=== PATIENT | male | born 1990 | race Two or more races ===

== ENCOUNTER 2024-05-30 16:52 | Emergency (ER) | payer OTHER ==
[~2024-05-30] VITALS: Ht 190.5 cm; Wt 131.0 kg
[2024-05-30 17:50] LABS: Basophils # (auto) 0 10 ^3/uL (0-0.2); Basophils % (auto) 0.5 % (0.0-2.0); Eosinophils # (auto) 0.1 10 ^3/uL (0-0.8); Eosinophils % (auto) 0.7 % (0.0-7.0); Hematocrit 45.7 % (41.0-53.0); Hemoglobin 15.5 g/dL (13.5-17.5); Lymphocytes # (auto) 2.2 10 ^3/uL (0.4-5.4); Lymphocytes % (auto) 20.5 % (10.0-50.0); Mean Corpuscular Hemoglobin 29.6 pg (28.0-32.0); Monocytes # (auto) 0.5 10 ^3/uL (0-1.3); Monocytes % (auto) 4.6 % (0.0-12.0); Neutrophils # (auto) 7.8 10 ^3/uL (1.6-8.6); Neutrophils % (auto) 73.7 % (37.0-80.0); Nucleated Red Blood Cells % 0.1 %; Platelet Count (auto) 283 10^3/uL (140-450); Red Blood Cells 5.25 10^6/uL (4.5-5.90); Red Cell Distribution Width 13.6 % (11.8-14.3); White Blood Cell 10.5 10^3/uL (4.4-10.8)
--- NOTE | 2024-05-30 17:53 | ED.PDOC ---
GI ASSESSMENT HPI Comments 33-year-old male with no pertinent past medical history, presents to ED for upper abdominal pain that has been intermittent for the past three months, however worsening today. Patient states that he has pain after he eats and also develops nausea and vomiting. Patient reports that he ate pizza today, causing him to have pain and vomit. He denies any radiation of the pain to his back. Patient denies any fever, chills, chest pain, shortness of breath, lower abdominal pain, diarrhea, melena, hematemesis. Patient reports taking ibuprofen without relief of symptoms. Pain is currently rated as 5/10 in severity. Chief Complaint: Abdominal Pain Time Seen by MD: 16:59 Reviewed Notes: Nurses Notes, Medications, Allergies Allergies: Coded Allergies: NO KNOWN ALLERGIES (Unverified , 05/30/24) Mode of Arrival: Ambulatory Past Medical History PAST MEDICAL HISTORY: Denies Surgical History: Denies all surgeries Family History Family History: Reviewed,noncontributory to illness, No family hx of Cancer, No family hx of DM, No family hx of Heart leighann, No family hx of HTN, No family hx ofKidney leighann, No family hx of Liver leighann, No family hx of Lung leighann, No family hx of Stroke Social History Smoker: Non-Smoker Alcohol: Occasionally Drugs: Denies Drug Use Constitutional: denies: chills, diaphoresis, fatigue, fever, malaise, sweats, weakness, others EENTM: denies: blurred vision, double vision, ear bleeding, ear discharge, ear drainage, ear pain, ear ringing, eye pain, eye redness, hearing loss, mouth pain, mouth swelling, nasal discharge, nose bleeding, nose congestion, nose pain, photophobia, tearing, throat pain, throat swelling, voice changes, others Respiratory: denies: cough, hemoptysis, orthopnea, SOB at rest, shortness of breath, SOB with excertion, stridor, wheezing, others Cardiovascular: denies: chest pain, dizzy spells, diaphoresis, Dyspnea on ex ertion, edema, irregular heart beat, left arm pain, lightheadedness, palpitations, PND, syncope, others Gastrointestinal: reports: abdominal pain, nausea, vomiting; denies: abdomen distended, blood streaked bowels, constipated, diarrhea, dysphagia, difficulty swallowing, hematemesis, melena, poor appetite, poor fluid intake, rectal bleeding, rectal pain, others Genitourinary: denies: burning, dysuria, flank pain, frequency, hematuria, incontinence, penile discharge, penile sore, pain, testicle pain, testicle swelling, urgency, others Neurological: denies: dizziness, fainting, headache, left sided numbness, left sided weakness, numbness, paresthesia, pre-existing deficit, right sided numbness, right sided weakness, seizure, speech problems, tingling, tremors, weakness, others Musculoskeletal: denies: back pain, gout, joint pain, joint swelling, muscle pain, muscle stiffness, neck pain, others Integumetry: denies: bruises, change in color, change in hair/nails, dryness, laceration, lesions, lumps, rash, wounds, others Allergic/Immunocompromised: denies: Difficulty Healing, Frequent Infections, Hives, Itching, others Hematologic/Lymphatic: denies: anemia, blood clots, easy bleeding, easy bruising, swollen glands, others Endocrine: denies: excessive hunger, excessive sweating, excessive thirst, excessive urination, flushing, intolerance to cold, intolerance to heat, unexplained weight gain, unexplained weight loss, others Psychiatric: denies: anxiety, bipolar disorder, depression, hopeless, panic disorder, schizophrenia, sleepless, suicidal, others All Other Systems: Reviewed and Negative Physical Exam General Appearance: No Apparent Distress, Normal HEENT: Normal ENT Inspection, Pharynx Normal, TMs Normal Neck: Full Range of Motion, Non-Tender, Normal, Normal Inspection Respiratory: Chest Non-Tender, Lungs Clear, No Accessory Muscle Use, No Respiratory Distress, Normal Breath Sounds Cardiovascular: No Edema, No JVD, No Murmur, No Gallop, Normal Peripheral Pulses, Regular Rate/Rhythm Breast Exam: Deferred Gastrointestinal: No Organomegaly, No Pulsatile Mass, Normal Bowel Sounds, Soft, Tenderness (Mild tenderness to palpation to the epigastric region.) Genitalia: Deferred Pelvic: Deferred Rectal: Deferred Extremities: No calf tenderness, Normal capillary refill, Normal inspection, Normal range of motion, Non-tender, No pedal edema Musculoskeletal : Apperance: Normal Neurologic: Alert, store custodian II-XII nml as Tested, No Motor Deficits, Normal Affect, Normal Mood, No Sensory Deficits Cerebellar Function: Normal Reflexes: Normal Skin: Dry, Normal Color, Warm Lymphatic: No Adenopathy Was a procedure done? Was a procedure done?: No GI differential Dx Differential Diagnosis: Appendicitis, Gastritis/PUD, Gastroenteritis, GI hemorrhage, Pancreatitis, Electrolyte Imbalance, Esophageal Varicies, Kidney Stone X-Ray, Labs, Meds, VS Vital Signs Date Time Temp Pulse Resp B/P (MAP) Pulse Ox O2 Delivery O2 Flow Rate FiO2 05/30/24 17:55 70 17 98 Room Air 05/30/24 17:55 98.0 70 17 132/76 (94) 98 98.0 05/30/24 16:58 98.6 78 18 136/74 (94) 99 98.6 Lab Test 05/30/24 17:32 05/30/24 17:31 Range/Units White Blood Count 10.5 4.4-10.8 10^3/uL Red Blood Count 5.25 4.5-5.90 10^6/uL Hemoglobin 15.5 13.5-17.5 g/dL Hematocrit 45.7 41.0-53.0 % Mean Corpuscular Volume 87.0 80.0-100.0 fL Mean Corpuscular Hemoglobin 29.6 28.0-32.0 pg Mean Corpuscular Hemoglobin Concent 34.0 32.0-36.0 g/dL Red Cell Distribution Width 13.6 11.8-14.3 % Platelet Count 283 140-450 10^3/uL Mean Platelet Volume 8.2 6.9-10.8 fL Neutrophils (%) (Auto) 73.7 37.0-80.0 % Lymphocytes (%) (Auto) 20.5 10.0-50.0 % Monocytes (%) (Auto) 4.6 0.0-12.0 % Eosinophils (%) (Auto) 0.7 0.0-7.0 % Basophils (%) (Auto) 0.5 0.0-2.0 % Neutrophils # (Auto) 7.8 1.6-8.6 10 ^3/uL Lymphocytes # (Auto) 2.2 0.4-5.4 10 ^3/uL Monocytes # (Auto) 0.5 0-1.3 10 ^3/uL Eosinophils # (Auto) 0.1 0-0.8 10 ^3/uL Basophils # (Auto) 0 0-0.2 10 ^3/uL Nucleated Red Blood Cells 0.1 % Sodium Level 142 136-145 mmol/L Potassium Level 3.9 3.5-5.1 mmol/L Chloride Level 109 H 98-107 mmol/L Carbon Dioxide Level 26 20-31 mmol/L Anion Gap 7 5-15 Blood Urea Nitrogen 13 9-23 mg/dL Creatinine 1.35 H 0.700-1.30 mg/dL Glomerular Filtration Rate Calc 72 >90 mL/min BUN/Creatinine Ratio 9.6 L 10.0-20.0 Serum Glucose 100 74-106 mg/dL Lactic Acid Level 1.0 0.4-2.0 mmol/L Calcium Level 10.2 8.7-10.4 mg/dL Total Bilirubin 0.9 0.2-1.0 mg/dL Aspartate Amino Transferase (AST) 71 H 13-40 U/L Alanine Aminotransferase (ALT) 62 H 7-40 U/L Alkaline Phosphatase 81 46-116 U/L Total Protein 7.4 5.7-8.2 g/dL Albumin 4.9 H 3.2-4.8 g/dL Lipase 43 12-53 U/L Current Medications Medications (Trade) Dose Ordered Sig/Lico Route Start Time Stop Time Status Last Admin Pantoprazole Sodium (Protonix Tablet) 40 mg ONCE ONCE PO 05/30/24 17:45 05/30/24 17:46 DC 05/30/24 17:54 Ondansetron HCl (Zofran Po) 4 mg ONCE ONCE PO 05/30/24 17:45 05/30/24 17:46 DC 05/30/24 17:54 X-Ray, Labs, Meds, VS Comment CT Abd/Pelv IMPRESSION: 1. No definite acute abdominal or pelvic findings. Hazy mesentery with subcentimeter mesenteric lymph nodes is nonspecific. Clinical correlation and continued follow-up is recommended. Gallbladder US Impression: Mild hepatomegaly with hepatic steatosis. Gallstones and sludge within the gallbladder with no evidence of acute cholecystitis. MDM: Patient with history as above presented with abdominal pain. History obtained from patient. Patient was nontoxic, stable, afebrile, ambulatory, no acute distress. Exam as above. Labs reviewed. CBC did not show leukocytosis. No anemia. CMP did not show significant electrolyte abnormalities. Creatinine mildly elevated at 1.35. Normal BUN. Lactic acid within normal limits. AST elevated at 71. ALT elevated at 62. Lipase within normal limits. Independently reviewed imaging. CT abdomen/pelvis did not show acute abdominal findings.. Reviewed external records. All findings were discussed with the patient. Differential diagnosis considered. Overall presentation is consistent with gastritis. Low suspicion for acute appendicitis, cholecystitis, bowel obstruction, diverticulitis, pancreatitis. Patient was treated with Protonix and Zofran with improvement in symptoms. Patient was reevaluated and vital signs were reviewed. Consideration was given for admission, but the patient was stable for outpatient management. Prescribed omeprazole for outpatient treatment. Patient was advised to follow up with PCP for further evaluation. Disposition: Discussed the need to follow up diagnostics, including incidental findings. Discharged the patient with instructions to obtain outpatient follow up in 1-2 days of today's symptoms and findings, with strict return precautions if patient develops new or worsening symptoms. This medical document was created using the [employer] system. Although this document has been carefully reviewed, there may still be some phonetic and typographical errors, which are due to imperfections of the software program, and do not reflect any compromise in the patient's medical care. Time of 1ST Reevaluation: 19:32 Reevaluation 1ST: Improved Patient Education/Counseling: Diagnosis, Treatment, Prognosis, Need For Follow Up Family Education/Counseling: Diagnosis, Treatment, Prognosis, Need For Follow Up Departure 1 Departure Time of Disposition: 19:32 Impression: Primary Impression: Gastritis Qualified Codes: K29.00 - Acute gastritis without bleeding Disposition: HOME / SELF CARE / HOMELESS Condition: Fair e-Prescriptions Omeprazole (Omeprazole) 20 Mg Tab 20 MG PO DAILY, #30 TAB Prov: BIPIN GRESHAM 05/30/24 Critical Care Note Critical Care Time?: No Stability Stability form required: No Heart Score Heart Score: Heart Score Response (Comments) Value History N/A 0 EKG N/A 0 Age N/A 0 Risk Factors N/A 0 Troponin N/A 0 Total 0 BIPIN GRESHAM May 30, 2024 17:53
[2024-05-30] MEDS: ONDANSETRON ODT 4 MG TAB PO ONE (17:54)
[2024-05-30] MEDS: PANTOPRAZOLE 40 MG TAB PO ONE (17:54)
[2024-05-30 17:55] VITALS: BP 132/76; PULSE 70; RESP 17; TEMP 98; O2SAT 98
[2024-05-30 18:07] LABS: Alanine Aminotransferase 62 U/L (7-40); Albumin 4.9 g/dL (3.2-4.8); Alkaline Phosphatase 81 U/L (46-116); Anion Gap 7 (5-15); Aspartate Aminotransferase 71 U/L (13-40); BUN/Creatinine Ratio 9.6 (10.0-20.0); Bilirubin, Total 0.9 mg/dL (0.2-1.0); Blood Urea Nitrogen 13 mg/dL (9-23); Calcium 10.2 mg/dL (8.7-10.4); Carbon Dioxide 26 mmol/L (20-31); Chloride 109 mmol/L (98-107); Glucose 100 mg/dL (74-106); Lipase 43 U/L (12-53); Potassium 3.9 mmol/L (3.5-5.1); Sodium 142 mmol/L (136-145); Total Protein 7.4 g/dL (5.7-8.2)
--- NOTE | 2024-05-30 18:09 | DVH ---
Exam: CT CT AB PEL WO CON-NO ORAL OR IV History: Epigastric pain Comparison Study: None Technique: Multidetector spiral CT of the abdomen and pelvis was performed from lung bases to pubic symphysis. Imaging was performed without IV contrast. Axial, coronal and sagittal multiplanar reform ats were obtained from the axial data set by the technologist. Radiation dose : Abdomen/Pelvis: CTDIvol 26 mGy, DLP 1707 mGy*cm. Findings: Evaluation of solid organs is limited due to lack of intravenous contrast use. Lung Bases: No acute or significant lung base finding. Normal heart size. No pleural or pericardial effusion. Liver: The liver is normal in size. No focal lesions. Gallbladder and biliary Tree: Unremarkable Spleen: Unremarkable Pancreas: The pancreas is grossly normal in appearance. Adrenal Glands: Unremarkable Kidneys: Kidneys are grossly normal without calculi or hydronephrosis. Bladder: Grossly unremarkable for degree of distention. Bowel: The stomach is grossly normal in appearance. Small bowel and colon are normal in caliber and d istribution. The appendix is not visualized; however, no secondary findings of acute appendicitis yohana ntified. Ascites: Absent Lymphadenopathy: Subcentimeter mesenteric lymph nodes. Abdominal wall and Mesentery: Hazy mesentery. Vasculature: The visualized abdominal aorta is normal in size and caliber. Evaluation of abdominal a nd pelvic vessels is limited due to lack of intravenous contrast. Pelvic Organs: Unremarkable Musculoskeletal: No aggressive focal bony lesions, acute fractures or dislocation. IMPRESSION: 1. No definite acute abdominal or pelvic findings. Hazy mesentery with subcentimeter mesenteric lymph nodes is nonspecific. Clinical correlation and continued follow-up is recommended. Radiation optimization: All CT scans at this facility use at least one of these dose optimization kalpesh hniques: Automated exposure control mA and/or kV adjustment per patient size (includes targeted exams where dose is matched to clinical indication) or iterative reconstruction. HS:Y
--- NOTE | 2024-05-30 19:18 | DVH ---
Procedure: US GALLBLADDER Study Date and Requested Time: 05/30/2024 06:38 PM History: R/o cholecystitis Comparison: CT abdomen and pelvis 05/30/2024 Technique: Multiple high resolution mann-scale images obtained of the right upper quadrant of the abd omen with color Doppler for evaluation of blood flow and vascularity as indicated. Findings: Liver normal in size, measuring 18 cm in length, with slightly increased echogenicity and normal cont ours. No evidence of focal hepatic lesions, intrahepatic or extrahepatic ductal dilatation. Common bi le duct measures 0.5 cm in diameter. Gallstones and sludge within the gallbladder with no evidence of gallbladder wall thickening or peric holecystic free fluid. Negative sonographic Ramesh's sign. Pancreas is obscured by bowel gas. Right kidney measures 9.2 cm in length, with normal contours, echotexture, and cortical thickness. No evidence of hydronephrosis, calculi, cystic or solid renal lesions. Partially visualized inferior vena cava unremarkable. Impression: Mild hepatomegaly with hepatic steatosis. Gallstones and sludge within the gallbladder with no evidence of acute cholecystitis.
[2024-05-30] MEDS ORDERED: OMEP-335 PO (19:33)
== END 2024-05-30 19:44 | disposition home or self-care (01) ==
LOC: ER 16:54 → EEVIPCON 16:54 → ER 19:44
DX: K29.70 Gastritis, unspecified, without bleeding (principal)
CPT/HCPCS: 36415; 74176; 76705; 80053; 83605; 83690; 85025; 99284; Q0162

== ENCOUNTER 2024-09-14 02:43 | Emergency (ER) | payer OTHER ==
[~2024-09-14] VITALS: Ht 190.5 cm; Wt 300.0 kg
[~2024-09-14 02:43] MED LIST: OMEP-335 PO
[2024-09-14] MEDS ORDERED: KETOROLAC TROMETH 30 MG/ML 1ML VIAL IM ONE (03:00)
[2024-09-14] MEDS ORDERED: SODIUM CHLORIDE 0.9% 1,000 ML IV ONE (03:15)
--- NOTE | 2024-09-14 03:18 | ED.PDOC ---
GI ASSESSMENT HPI Comments 33 year old male presents to the ED with a chief complaint of abdominal pain onset today (09/14/24) around 01:40. Patient states he had dinner at 18:00, went to bed, woke up at 01:40 experiencing 10/10, diffused abdominal pain as well as nausea/vomiting. Patient has been experiencing intermittent abdominal pain for the past week. Was seen in this ED on 05/30/24 for similar symptoms, was diagnosed with Gastritis. PMHx Gastritis. Denies chest pain, diarrhea, constipation, dizziness, headache, fevers, chills, hematemesis, melena. No other symptoms or modifying factors present at this time. Time Seen by MD: 03:05 Reviewed Notes: Medications, Allergies Allergies: Coded Allergies: NO KNOWN ALLERGIES (Unverified , 05/30/24) Home Meds Active Scripts Omeprazole (Omeprazole) 20 Mg Tab, 20 MG PO DAILY, #30 TAB Prov:BIPIN GRESHAM MARY PAC 05/30/24 Information Source: Patient, Spouse Mode of Arrival: Wheelchair Timing: Hours Duration: Since onset Prehospital treatment: None Quality: Sharp Severity: Moderate Recent: None Recent Hx of: None Pain Location: Diffuse Associated sign and symptoms: Nausea, Vomiting, Abdominal Pain Vital Signs Vital Signs Date Time Temp Pulse Resp B/P (MAP) Pulse Ox O2 Delivery O2 Flow Rate FiO2 09/14/24 04:10 107 18 137/72 09/14/24 03:50 97.7 98 97.7 Physical Exam General: Awake, alert and oriented. Patient appears to be in significant discomfort Skin: Skin in warm, dry and intact. Appropriate color for ethnicity. HEENT: The head is normocephalic and atraumatic. Conjunctivae are clear without exudates or hemorrhage. Sclera is non-icteric. EOM are intact. No signs of nystagmus. Eyelids are normal in appearance without swelling or lesions. Oral mucosa is pink and moist Neck: The neck is supple with normal range of motion. No JVD. Cardiac: Heart rate and rhythm are normal. No murmurs, gallops, or rubs are auscultated. Respiratory: No signs of respiratory distress. Lung sounds are clear in all lobes bilaterally without rales, rhonchi, or wheezes. Abdominal: Abdomen is soft, with epigastric tenderness, guarding or rigidity. Extremities: Upper and lower extremities are atraumatic in appearance without deformity or edema. Neurological: The patient is awake, alert and oriented to person, place, and time with normal speech. Speech is clear. There is no facial asymmetry. Psychiatric: Appropriate mood and affect. Good judgement and insight. Review of Systems: As stated in HPI Past Medical History PAST MEDICAL HISTORY: Denies Surgical History: Denies all surgeries Family History Family History: Reviewed,noncontributory to illness, No family hx of Cancer, No family hx of DM, No family hx of Heart leighann, No family hx of HTN, No family hx ofKidney leighann, No family hx of Liver leighann, No family hx of Lung leighann, No family hx of Stroke Social History Smoker: Non-Smoker Alcohol: Occasionally Drugs: Denies Drug Use Lives In: Home Was a procedure done? Was a procedure done?: No GI differential Dx Differential Diagnosis: Other (Differential diagnoses considered include: Abdominal aortic aneurysm, WI, esophageal rupture, intestinal obstruction, mesenteric ischemia, perforated viscus or solid organ rupture, CHF with hepatomegaly, pneumonia, abscess, appendicitis, biliary disease, diverticulitis, gastritis, gastroenteritis, hepatitis, hernia, inflammatory bowel disease, pancreatitis, peptic ulcer disease, urinary tract infection, ureteral colic, constipation, GERD, irritable syndrome, abdominal wall pain, nonspecific abdominal pain, herpes zoster, nephrolithiasis.) X-Ray, Labs, Meds, VS Vital Signs Date Time Temp Pulse Resp B/P (MAP) Pulse Ox O2 Delivery O2 Flow Rate FiO2 09/14/24 04:10 107 18 137/72 09/14/24 03:50 97.7 70 21 137/83 (101) 98 97.7 09/14/24 02:43 98.2 65 18 121/65 (83) 99 98.2 Lab Test 09/14/24 02:58 Range/Units White Blood Count 13.2 H 4.4-10.8 10^3/uL Red Blood Count 5.46 4.5-5.90 10^6/uL Hemoglobin 16.3 13.5-17.5 g/dL Hematocrit 48.1 41.0-53.0 % Mean Corpuscular Volume 88.1 80.0-100.0 fL Mean Corpuscular Hemoglobin 29.9 28.0-32.0 pg Mean Corpuscular Hemoglobin Concent 34.0 32.0-36.0 g/dL Red Cell Distribution Width 13.5 11.8-14.3 % Platelet Count 286 140-450 10^3/uL Mean Platelet Volume 8.6 6.9-10.8 fL Neutrophils (%) (Auto) 59.7 37.0-80.0 % Lymphocytes (%) (Auto) 33.7 10.0-50.0 % Monocytes (%) (Auto) 5.6 0.0-12.0 % Eosinophils (%) (Auto) 0.5 0.0-7.0 % Basophils (%) (Auto) 0.5 0.0-2.0 % Neutrophils # (Auto) 7.9 1.6-8.6 10 ^3/uL Lymphocytes # (Auto) 4.5 0.4-5.4 10 ^3/uL Monocytes # (Auto) 0.7 0-1.3 10 ^3/uL Eosinophils # (Auto) 0.1 0-0.8 10 ^3/uL Basophils # (Auto) 0.1 0-0.2 10 ^3/uL Nucleated Red Blood Cells 0.1 % Sodium Level 143 136-145 mmol/L Potassium Level 3.0 L 3.5-5.1 mmol/L Chloride Level 106 98-107 mmol/L Carbon Dioxide Level 22 20-31 mmol/L Anion Gap 15 5-15 Blood Urea Nitrogen 14 9-23 mg/dL Creatinine 1.26 0.700-1.30 mg/dL Glomerular Filtration Rate Calc 78 >90 mL/min BUN/Creatinine Ratio 11.1 10.0-20.0 Serum Glucose 162 H 74-106 mg/dL Calcium Level 9.4 8.7-10.4 mg/dL Total Bilirubin 4.9 H 0.2-1.0 mg/dL Aspartate Amino Transferase (AST) 279 H 13-40 U/L Alanine Aminotransferase (ALT) 324 H 7-40 U/L Alkaline Phosphatase 108 46-116 U/L Total Protein 7.1 5.7-8.2 g/dL Albumin 4.7 3.2-4.8 g/dL Lipase > 3500 H 12-53 U/L Current Medications Medications (Trade) Dose Ordered Sig/Lico Route Start Time Stop Time Status Last Admin Morphine Sulfate 4 mg ONCE ONCE IV 09/14/24 03:15 09/14/24 03:16 DC 09/14/24 04:10 Ondansetron HCl (Zofran) 4 mg ONCE ONCE IV 09/14/24 03:15 09/14/24 03:16 DC 09/14/24 04:10 Sodium Chloride 1,000 ml @ 1,000 mls/hr Q1H ONCE IV 09/14/24 04:15 09/14/24 04:54 DC 09/14/24 04:09 Time of 1ST Reevaluation: 03:35 Reevaluation 1ST: Unchanged Patient Education/Counseling: Need For Follow Up Family Education/Counseling: Need For Follow Up SEPSIS Sepsis Screen Physician Orders Ct Ab Pel Wo Con-No Oral Or Iv (09/14/24 02:51) Vital Signs Date Time Temp Pulse Resp B/P (MAP) Pulse Ox O2 Delivery O2 Flow Rate FiO2 09/14/24 04:10 107 18 137/72 09/14/24 03:50 97.7 70 21 137/83 (101) 98 97.7 09/14/24 02:43 98.2 65 18 121/65 (83) 99 98.2 Laboratory Tests Test 09/14/24 02:58 White Blood Count 13.2 10^3/uL (4.4-10.8) H Medications Medications Dose Ordered Sig/Lico Route Start Time Stop Time Status Last Admin Dose Admin Morphine Sulfate 4 mg ONCE ONCE IV 09/14/24 03:15 09/14/24 03:16 DC 09/14/24 04:10 Ondansetron HCl 4 mg ONCE ONCE IV 09/14/24 03:15 09/14/24 03:16 DC 09/14/24 04:10 Sodium Chloride 1,000 ml @ 1,000 mls/hr Q1H ONCE IV 09/14/24 04:15 09/14/24 04:54 DC 09/14/24 04:09 Departure 1 Departure Time of Disposition: 04:04 Impression: Primary Impression: Acute pancreatitis Disposition: LEFT AWOL/ELOPED Condition: Stable Comments 33-year-old male with acute pancreatitis, treatment initiated in the emergency department, pending consultation with [facility] physician for admission. Despite our efforts, patient has decided to leave against medical advice. The patient has a normal mental status and full decisional capacity. Patient has been informed of the benefits of staying such as further diagnosis and treatment of possible serious etiology of the symptoms, and the risks of leaving such as , chronic pain, permanent disability or other serious adverse events which might be attributed to leaving. The patient displays clear understanding of these benefits and risks and chooses to leave. The patient is been informed also that they may return here at any time if they change their mind or need to further concerns or questions has been referred to their local medical physician for follow up KRISTINA. Critical Care Note Critical Care Time?: No Stability Stability form required: No I personally scribed for JOSE A SEXTON MD ([email or web address]) on 09/14/24 at 03:18. Electronically submitted by Mildred Ferrari ([email or web address]). JOSE A SEXTON MD Sep 14, 2024 03:18
[2024-09-14 03:24] LABS: Hematocrit 48.1 % (41.0-53.0); Hemoglobin 16.3 g/dL (13.5-17.5); Mean Corpuscular Hemoglobin 29.9 pg (28.0-32.0); Mean Corpuscular Volume 88.1 fL (80.0-100.0); Nucleated Red Blood Cells % 0.1 %
--- NOTE | 2024-09-14 03:32 | DVH ---
Exam: CT CT AB PEL WO CON-NO ORAL OR IV History: Abdominal pain, history of gallstones Comparison Study: CT CT AB PEL WO CON-NO ORAL OR IV on DOS: 05/30/24 Technique: Multidetector spiral CT of the abdomen was performed from lung bases to pubic symphysis. I maging was performed without IV contrast. Axial, coronal and sagittal multiplanar reformats were obta ined from the axial data set by the technologist. Radiation Dose : 1. Abdomen/Pelvis: CTDIvol 25.4 mGy, DLP 1663.92 mGy*cm. Findings: Evaluation of solid organs is limited due to lack of intravenous contrast use. Lung Bases: No acute or significant lung base finding. Normal heart size. No pleural or pericardial effusion. Liver: The liver is enlarged, measuring 20.2 cm in craniocaudal dimension.. No focal lesions. Gallbladder and Biliary Tree: Unremarkable Spleen: Unremarkable Pancreas: Moderate diffuse peripancreatic free fluid. The pancreatic parenchyma is grossly normal in its unopacified parenchymal attenuation. No evidence of organized fluid collection to suggest absces s or pseudocyst. Adrenal Glands: Unremarkable Kidneys: Kidneys are grossly normal without calculi or hydronephrosis. Bladder: Grossly unremarkable for degree of distention. Bowel: Small hiatal hernia. The stomach is grossly normal in appearance. Small bowel and colon are no rmal in caliber and distribution. The appendix is not visualized; however, no secondary findings of a cute appendicitis identified. Ascites: Small volume abdominal ascites. Lymphadenopathy: No mesenteric, retroperitoneal or periportal lymphadenopathy. Abdominal Wall and Mesentery: Unremarkable. Vasculature: The visualized abdominal aorta is normal in size and caliber. Evaluation of abdominal a nd pelvic vessels is limited due to lack of intravenous contrast. Pelvic Organs: Unremarkable Musculoskeletal: No aggressive focal bony lesions, acute fractures or dislocation. IMPRESSION: 1. Moderate diffuse peripancreatic free fluid consistent with sequelae of acute pancreatitis. No defi nite organized fluid collection to suggest abscess or pseudocyst at this time. 2. Small volume abdominal ascites. 3. Hepatomegaly. Radiation optimization: All CT scans at this facility use at least one of these dose optimization kalpesh hniques: automated exposure control mA and/or kV adjustment per patient size (includes targeted exam s where dose is matched to clinical indication) or iterative reconstruction.
[2024-09-14 03:43] LABS: Albumin 4.7 g/dL (3.2-4.8); Alkaline Phosphatase 108 U/L (46-116); Anion Gap 15 (5-15); BUN/Creatinine Ratio 11.1 (10.0-20.0); Blood Urea Nitrogen 14 mg/dL (9-23); Calcium 9.4 mg/dL (8.7-10.4); Carbon Dioxide 22 mmol/L (20-31); Chloride 106 mmol/L (98-107); Sodium 143 mmol/L (136-145); Total Protein 7.1 g/dL (5.7-8.2)
[2024-09-14 03:45] LABS: Alanine Aminotransferase 324 U/L (7-40); Bilirubin, Total 4.9 mg/dL (0.2-1.0); Glucose 162 mg/dL (74-106); Potassium 3.0 mmol/L (3.5-5.1)
[2024-09-14 03:50] VITALS: TEMP 97.7; O2SAT 98
[2024-09-14 03:54] LABS: Lipase > 3500 U/L (12-53)
[2024-09-14] MEDS: SODIUM CHLORIDE 0.9% 1,000 ML IV ONE (04:09)
[2024-09-14 04:10] VITALS: BP 137/72; PULSE 107; RESP 18
[2024-09-14] MEDS: MORPHINE SULFATE INJ 2 MG/ml SYRG IV ONE (04:10)
[2024-09-14] MEDS: ONDANSETRON HCL 4 MG/2 ML VIAL IV ONE (04:10)
== END 2024-09-14 04:52 | disposition left against medical advice (07) ==
LOC: ER 02:43 → EEVIPCON 02:43 → ER 04:52
DX: K85.90 Acute pancreatitis without necrosis or infection, unspecified (principal); Z79.899 Other long term (current) drug therapy
CPT/HCPCS: 36415; 74176; 80053; 83690; 85025; 96361; 96374; 96375; 99285; J2270; J2405; J7030